=== PATIENT | male | born 1965 | race Caucasian/White ===

== ENCOUNTER 2023-01-02 10:01 | Outpatient (CLI) | payer OTHER | END 2023-01-02 10:02 | disposition home or self-care (01) | LOC: CSHWCC 10:01 | PROVIDERS: ATTEND Nurse Practitioner Family | DX: T81.89XD Other complications of procedures, not elsewhere classified, subsequent encounter (principal); E11.621 Type 2 diabetes mellitus with foot ulcer; L97.421 Non-pressure chronic ulcer of left heel and midfoot limited to breakdown of skin; R60.0 Localized edema | CPT/HCPCS: 11043; 11046; 29581; 97605; 99203; G0463 ==

== ENCOUNTER 2023-01-03 17:30 | Emergency (ER) | payer SELFPAY ==
[~2023-01-03 17:30] MED LIST: Iopamidol 370 76% 100 ML VIAL ONE
[2023-01-03 18:14] LABS: #Eosinphils 0.2 10x3/uL (0.0-0.5); #Monocytes 0.4 10x3/uL (0.0-1.1); #Neutrophils 2.6 10x3/uL (1.5-8.4); %Basophils 0.7 % (0.0-2.0); %Eosinophils 3.9 % (0.0-6.0); %Lymphocytes 29.5 % (18.0-47.0); %Monocytes 9.4 % (0.0-10.0); %Neutrophils 56.3 % (40.0-75.0); Hematocrit 31.9 % (38.8-50.0); Hemoglobin 9.9 g/dL (13.5-17.5); Mean Corpuscular Hemoglobin 28.3 pg (27.0-33.0); Mean Corpuscular Volume 91.1 fl (81.2-95.1); Mean Platelet Volume 10.3 fl (7.4-10.4); Platelet Count 271 10x3/uL (150-450); RBC Distribution Width 16.4 % (11.5-14.5); White Blood Cell (WBC) Count 4.6 10x3/uL (3.5-10.5)
[2023-01-03 18:24] LABS: INR-International Normal Ratio 1.1; PTT 27.3 sec (22.0-33.0); Prothrombin Time 11.9 sec (9.5-12.1)
[2023-01-03 18:31] LABS: ALT (SGPT) 8 U/L (8-55); AST (SGOT) 13 U/L (5-34); Albumin 3.5 g/dL (3.5-5.0); Alkaline Phosphatase 57 U/L (40-110); Anion Gap 18 mmol/L (10-20); BUN (Urea Nitrogen) 11 mg/dL (8.4-25.7); Bilirubin, Total 0.4 mg/dL (0.2-1.2); Calc. Creatinine Clearance 0 mL/min (70-130); Calcium 8.5 mg/dL (7.8-10.44); Carbon Dioxide 22 mmol/L (22-29); Chloride 104 mmol/L (98-107); Estimated GFR 77; Glucose 152 mg/dL (70-105); Lipase 24 U/L (8-78); Magnesium 1.6 mg/dL (1.6-2.6); Potassium 3.6 mmol/L (3.5-5.1); Protein, Total 7.5 g/dL (6.0-8.3); Sodium 140 mmol/L (136-145)
[2023-01-03 18:33] LABS: Troponin I Less than 0.010 ng/mL (< 0.028)
[2023-01-03] MEDS ORDERED: metroNIDAZOLE 500 MG/100 ML BAG ONE (19:38)
[2023-01-03] MEDS ORDERED: cefTRIAXone (ROCEPHIN) 2 GM VIAL ONE (19:38)
[2023-01-03] MEDS ORDERED: Furosemide 40 MG/4 ML VIAL ONE (19:54)
== END 2023-01-03 22:03 | disposition admitted as inpatient to this hospital (09) ==
LOC: CSHERS 17:30
DX: I11.9 Hypertensive heart disease without heart failure (principal); I50.9 Heart failure, unspecified; E78.5 Hyperlipidemia, unspecified; E11.40 Type 2 diabetes mellitus with diabetic neuropathy, unspecified; Z87.891 Personal history of nicotine dependence
CPT/HCPCS: 71045; 71275; 80053; 83605; 83690; 83735; 83880; 84443; 84484; 85025; 85610; 85730; 93005; 96374; 96375; J0696; J1940; Q9967

== ENCOUNTER 2023-01-17 13:04 | Outpatient (CLI) | payer OTHER, SELFPAY | END 2023-01-17 13:05 | disposition home or self-care (01) | LOC: CSHWCC 13:04 | PROVIDERS: ATTEND Nurse Practitioner Family | DX: T81.89XD Other complications of procedures, not elsewhere classified, subsequent encounter (principal); L89.890 Pressure ulcer of other site, unstageable; R60.0 Localized edema; E11.621 Type 2 diabetes mellitus with foot ulcer; L97.522 Non-pressure chronic ulcer of other part of left foot with fat layer exposed | CPT/HCPCS: 97605 ==

== ENCOUNTER → 2023-01-22 | Outpatient (CLI) | payer SELFPAY | LOC: CSHWCC 10:00 | PROVIDERS: ATTEND Nurse Practitioner Family | DX: M86.9 Osteomyelitis, unspecified (principal) | CPT/HCPCS: 97605 ==

== ENCOUNTER 2023-01-25 13:28 | Outpatient (CLI) | payer OTHER | END 2023-01-25 13:29 | disposition home or self-care (01) | LOC: CSHWCC 13:28 | PROVIDERS: ATTEND Nurse Practitioner Family | DX: E11.621 Type 2 diabetes mellitus with foot ulcer (principal); L97.522 Non-pressure chronic ulcer of other part of left foot with fat layer exposed; L89.890 Pressure ulcer of other site, unstageable | CPT/HCPCS: 97605 ==

== ENCOUNTER 2023-01-25 14:55 | Emergency (ER) | payer OTHER ==
[2023-01-25 15:26] LABS: #Eosinphils 0.2 10x3/uL (0.0-0.5); #Monocytes 0.5 10x3/uL (0.0-1.1); %Basophils 0.5 % (0.0-2.0); %Eosinophils 3.2 % (0.0-6.0); %Lymphocytes 20.9 % (18.0-47.0); %Monocytes 7.9 % (0.0-10.0); Hemoglobin 10.7 g/dL (13.5-17.5); Mean Corpuscular HGB CONC 32.4 g/dL (32.0-36.0); Mean Corpuscular Hemoglobin 28.6 pg (27.0-33.0); Mean Corpuscular Volume 88.2 fl (81.2-95.1); Mean Platelet Volume 10.4 fl (7.4-10.4); Platelet Count 301 10x3/uL (150-450); RBC Distribution Width 14.8 % (11.5-14.5); Red Blood Cell (RBC) Count 3.74 10x6/uL (4.32-5.72); White Blood Cell (WBC) Count 5.9 10x3/uL (3.5-10.5)
[2023-01-25 15:32] LABS: Bilirubin, Total 0.6 mg/dL (0.2-1.2); Calcium 9.5 mg/dL (7.8-10.44); Chloride 98 mmol/L (98-107); Potassium 4.2 mmol/L (3.5-5.1); Sodium 138 mmol/L (136-145)
[2023-01-25 15:42] LABS: Troponin I 0.013 ng/mL (< 0.028)
[2023-01-25 15:49] LABS: ALT (SGPT) 16 U/L (8-55); AST (SGOT) 23 U/L (5-34); Alkaline Phosphatase 79 U/L (40-110); BUN (Urea Nitrogen) 41 mg/dL (8.4-25.7); Calc. Creatinine Clearance 0 mL/min (70-130); Carbon Dioxide 27 mmol/L (22-29); Estimated GFR 44; Globulin 4.3 g/dL (2.4-3.5); Glucose 162 mg/dL (70-105); Protein, Total 8.3 g/dL (6.0-8.3)
[2023-01-25 18:59] LABS: Anion Gap 17 mmol/L (10-20)
== END 2023-01-25 17:50 | disposition home or self-care (01) ==
LOC: CSHERS 14:55
DX: I95.9 Hypotension, unspecified (principal); E86.0 Dehydration; E11.9 Type 2 diabetes mellitus without complications; I10 Essential (primary) hypertension; E78.5 Hyperlipidemia, unspecified; Z79.899 Other long term (current) drug therapy; Z87.891 Personal history of nicotine dependence
CPT/HCPCS: 71045; 80053; 84484; 85025; 93005

== ENCOUNTER 2023-01-26 09:26 | Outpatient (CLI) | payer OTHER, SELFPAY | END 2023-01-26 09:27 | disposition home or self-care (01) | LOC: CSHWCC 09:26 | PROVIDERS: ATTEND Nurse Practitioner Family | DX: T81.89XD Other complications of procedures, not elsewhere classified, subsequent encounter (principal); L89.890 Pressure ulcer of other site, unstageable; R60.0 Localized edema; E11.621 Type 2 diabetes mellitus with foot ulcer; L97.522 Non-pressure chronic ulcer of other part of left foot with fat layer exposed | CPT/HCPCS: 97605 ==

== ENCOUNTER 2023-01-31 19:35 | Emergency (ER) | payer SELFPAY ==
[2023-01-31 20:37] LABS: #Eosinphils 0.3 10x3/uL (0.0-0.5); #Monocytes 0.5 10x3/uL (0.0-1.1); #Neutrophils 3.9 10x3/uL (1.5-8.4); %Basophils 0.3 % (0.0-2.0); %Eosinophils 4.6 % (0.0-6.0); %Lymphocytes 20.7 % (18.0-47.0); %Monocytes 8.5 % (0.0-10.0); %Neutrophils 65.7 % (40.0-75.0); Hematocrit 33.6 % (38.8-50.0); Hemoglobin 10.9 g/dL (13.5-17.5); Mean Corpuscular HGB CONC 32.4 g/dL (32.0-36.0); Mean Corpuscular Hemoglobin 28.2 pg (27.0-33.0); Mean Corpuscular Volume 86.8 fl (81.2-95.1); Mean Platelet Volume 10.5 fl (7.4-10.4); Platelet Count 264 10x3/uL (150-450); RBC Distribution Width 14.5 % (11.5-14.5); Red Blood Cell (RBC) Count 3.87 10x6/uL (4.32-5.72); White Blood Cell (WBC) Count 5.9 10x3/uL (3.5-10.5)
== END 2023-01-31 21:00 | disposition home or self-care (01) ==
LOC: CSHERS 19:35
DX: S98.132D Complete traumatic amputation of one left lesser toe, subsequent encounter (principal); E78.5 Hyperlipidemia, unspecified; I10 Essential (primary) hypertension; E11.40 Type 2 diabetes mellitus with diabetic neuropathy, unspecified; X58.XXXD Exposure to other specified factors, subsequent encounter; Z87.891 Personal history of nicotine dependence; Z79.01 Long term (current) use of anticoagulants
CPT/HCPCS: 36415; 85025; 99283

== ENCOUNTER 2023-02-13 13:38 | Outpatient (CLI) | payer SELFPAY | END 2023-02-13 13:39 | disposition home or self-care (01) | LOC: CSHWCC 13:38 | PROVIDERS: ATTEND Preventive Medicine Undersea and Hyperbaric Medicine | DX: T81.89XD Other complications of procedures, not elsewhere classified, subsequent encounter (principal); L89.890 Pressure ulcer of other site, unstageable; E11.621 Type 2 diabetes mellitus with foot ulcer; L97.522 Non-pressure chronic ulcer of other part of left foot with fat layer exposed; R60.0 Localized edema | CPT/HCPCS: 97605 ==

== ENCOUNTER 2023-02-16 11:40 | Outpatient (CLI) | payer SELFPAY | END 2023-02-16 11:41 | disposition home or self-care (01) | LOC: CSHWCC 11:40 | PROVIDERS: ATTEND Physician Assistant | DX: T81.89XD Other complications of procedures, not elsewhere classified, subsequent encounter (principal); R60.0 Localized edema | CPT/HCPCS: 97605 ==

== ENCOUNTER 2023-02-22 14:41 | Outpatient (CLI) | payer SELFPAY | END 2023-02-22 14:42 | disposition home or self-care (01) | LOC: CSHWCC 14:41 | PROVIDERS: ATTEND Physician Assistant | DX: M86.9 Osteomyelitis, unspecified (principal) | CPT/HCPCS: 97597; 97598; 97605 ==

== ENCOUNTER 2023-02-26 11:13 | Outpatient (CLI) | payer BC, OTHER, SELFPAY | END 2023-02-26 11:14 | disposition home or self-care (01) | LOC: CSHWCC 11:13 | PROVIDERS: ATTEND Preventive Medicine Undersea and Hyperbaric Medicine | DX: E11.621 Type 2 diabetes mellitus with foot ulcer (principal); T81.89XD Other complications of procedures, not elsewhere classified, subsequent encounter; L97.522 Non-pressure chronic ulcer of other part of left foot with fat layer exposed; L89.890 Pressure ulcer of other site, unstageable | CPT/HCPCS: 97602; 97605 ==

== ENCOUNTER 2023-02-27 01:29 | Emergency (ER) | payer BC, OTHER, SELFPAY ==
[2023-02-27 02:55] LABS: #Eosinphils 0.2 10x3/uL (0.0-0.5); #Monocytes 0.4 10x3/uL (0.0-1.1); #Neutrophils 4.2 10x3/uL (1.5-8.4); %Basophils 0.3 % (0.0-2.0); %Eosinophils 3.6 % (0.0-6.0); %Lymphocytes 18.1 % (18.0-47.0); %Monocytes 7.1 % (0.0-10.0); %Neutrophils 70.7 % (40.0-75.0); Hematocrit 33.3 % (38.8-50.0); Hemoglobin 10.9 g/dL (13.5-17.5); Mean Corpuscular HGB CONC 32.7 g/dL (32.0-36.0); Mean Corpuscular Hemoglobin 28.7 pg (27.0-33.0); Mean Corpuscular Volume 87.6 fl (81.2-95.1); Mean Platelet Volume 10.7 fl (7.4-10.4); Platelet Count 229 10x3/uL (150-450); RBC Distribution Width 14.4 % (11.5-14.5); White Blood Cell (WBC) Count 5.9 10x3/uL (3.5-10.5)
[2023-02-27 03:09] LABS: ALT (SGPT) 14 U/L (8-55); AST (SGOT) 19 U/L (5-34); Albumin 3.8 g/dL (3.5-5.0); Alkaline Phosphatase 71 U/L (40-110); Anion Gap 16 mmol/L (10-20); BUN (Urea Nitrogen) 25 mg/dL (8.4-25.7); Bilirubin, Total 0.5 mg/dL (0.2-1.2); Calc. Creatinine Clearance 0 mL/min (70-130); Calcium 9.6 mg/dL (7.8-10.44); Carbon Dioxide 22 mmol/L (22-29); Chloride 104 mmol/L (98-107); Estimated GFR 62; Globulin 4.5 g/dL (2.4-3.5); Glucose 184 mg/dL (70-105); Lipase 45 U/L (8-78); Magnesium 1.6 mg/dL (1.6-2.6); Potassium 4.1 mmol/L (3.5-5.1); Protein, Total 8.3 g/dL (6.0-8.3); Sodium 138 mmol/L (136-145)
[2023-02-27 03:36] LABS: Troponin I Less than 0.010 ng/mL (< 0.028)
[2023-02-27 04:14] LABS: Bilirubin Neg (Negative); Blood, Urine 10 (Negative); Clarity Clear (Clear); Glucose, Urine (Dipstick) Normal (Negative); Ketone, Urine Negative (Negative); Leukocyte Negative (Negative); Nitrite Negative (Negative); Protein, Urine (Dipstick) 15 mg/dl (Neg-Trace); Specific Gravity, Urine 1.015 (1.005-1.030); Urobilinogen Normal mg/dL (Less than 2)
[2023-02-27 04:34] LABS: Bacteria/HPF None Seen HPF (None Seen); CAUTI Indications for Culture Dysuria,urgency,freq; RBC/HPF 0-3 HPF (0-3); Squamous Epithelial 0-3 HPF (0-3); WBC/HPF 0-3 HPF (0-3)
[2023-02-27 04:35] LABS: Urine Culture Reflex No No
== END 2023-02-27 04:55 | disposition home or self-care (01) ==
LOC: CSHERS 01:29
DX: R19.7 Diarrhea, unspecified (principal); N17.9 Acute kidney failure, unspecified; E11.9 Type 2 diabetes mellitus without complications; E78.5 Hyperlipidemia, unspecified; I10 Essential (primary) hypertension; Z87.891 Personal history of nicotine dependence; Z79.4 Long term (current) use of insulin; Z79.899 Other long term (current) drug therapy
CPT/HCPCS: 80053; 81001; 83605; 83690; 83735; 83880; 84443; 84484; 85025; 99284

== ENCOUNTER 2023-03-01 14:08 | Outpatient (CLI) | payer OTHER | END 2023-03-01 14:09 | disposition home or self-care (01) | LOC: CSHWCC 14:08 | PROVIDERS: ATTEND Preventive Medicine Undersea and Hyperbaric Medicine | DX: L89.890 Pressure ulcer of other site, unstageable (principal); T81.89XD Other complications of procedures, not elsewhere classified, subsequent encounter; E11.621 Type 2 diabetes mellitus with foot ulcer; L97.522 Non-pressure chronic ulcer of other part of left foot with fat layer exposed | CPT/HCPCS: 99212; G0463 ==

== ENCOUNTER 2023-03-05 14:17 | Outpatient (CLI) | payer OTHER | END 2023-03-05 14:18 | disposition home or self-care (01) | LOC: CSHWCC 14:17 | PROVIDERS: ATTEND Physician Assistant | DX: T81.89XD Other complications of procedures, not elsewhere classified, subsequent encounter (principal) | CPT/HCPCS: 99211; G0463 ==

== ENCOUNTER 2023-03-08 08:57 | Outpatient (CLI) | payer OTHER | END 2023-03-08 08:58 | disposition home or self-care (01) | LOC: CSHWCC 08:57 | PROVIDERS: ATTEND Physician Assistant | DX: E11.621 Type 2 diabetes mellitus with foot ulcer (principal); L97.522 Non-pressure chronic ulcer of other part of left foot with fat layer exposed | CPT/HCPCS: 97597; 97598 ==